=== PATIENT | female | born 1960 | race Caucasian/White ===

== ENCOUNTER 2017-04-24 12:40 | Emergency (ER) | payer BC ==
[~2017-04-24] VITALS: Ht 167.6 cm; Wt 63.3 kg
[2017-04-24 12:57] VITALS: Ht 167.6 cm; Wt 63.3 kg
[2017-04-24] MEDS ORDERED: IBUP-1459 PO (13:36)
--- NOTE | 2017-04-24 13:42 | EMERGENCY ROOM VISIT NOTE ---
History First contact with patient: 13:25 Chief Complaint: FALL Stated Complaint: LUE PAIN (RIBS), L HIP PAIN, HIT HEAD History of Present Illness The patient is a 56 year old female who presents to the Emergency Room via private vehicle accompanied by female with complaints of "left rib, left hip pain". The patient states that on Saturday, she was walking HER-2 dogs near the [facility], when the 2 dogs with the gerson after ortega rabbit causing her to fall down. She struck her head, there was no loss of consciousness. The rest of her body struck the grass. She notes pain in the left anterior ribs as well as left hip. She denies any midline C-spine tenderness, notes that it is her upper trapezius region that is tender. When she takes a deep breath there is pain in the left anterior rib cage. She denies abdominal pain. There is been no blood in the bowel or bladder function. She has been referred here today by [employer]. Review of Systems A complete 10-point Review of Systems was discussed with the patient, with pertinent positives and negatives listed in the History of Present Illness. All remaining Review of Systems questions can be considered negative unless otherwise specified. 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 Family History Heart disease, high blood pressure, kidney disease or stones. Social History Smoking Status: Former Smoker Patient lives with . She denies tobacco, admits to minimal alcohol use. Current/Historical Medications Scheduled PRN Ibuprofen (Motrin), 400 MG PO Q6H PRN for Pain Physical Exam Vital Signs Date Time Temp Pulse Resp B/P (MAP) Pulse Ox O2 Delivery O2 Flow Rate FiO2 04/24/17 15:59 36.3 60 18 128/66 98 04/24/17 15:57 60 18 128/66 98 Room Air 04/24/17 14:09 58 18 134/64 04/24/17 12:57 36.3 55 20 160/81 98 Room Air Physical Exam VITAL SIGNS - Vital signs and nursing notes were reviewed. Patient is afebrile , hypertensive at 160/81, bradycardic at 55 bpm, and is saturating well on room air at 98%. GENERAL -56-year-old female appearing her stated age. Communicates well with provider and answers questions appropriately. SKIN - Gross examination of the entire body surface demonstrates no lacerations to the body surface. HEAD - Normocephalic, Atraumatic. No Gilliland's Sign or Raccoon's Eyes. No depressed skull fractures palpable. EYES - PERRL with EOMI bilaterally. Without subconjunctival hemorrhage. Palpebral conjunctiva pink and moist with no injection. EARS - No deformities of external structures noted on gross examination bilaterally. No hemotympanum present. No tympanic perforation noted. Handle of malleus, umbo, cone of light, pars tensa/flaccid all easily visualized. NOSE - Midline and without cyanosis. No epistaxis or clear watery discharge noted. Septum midline without deviation. No septal hematoma noted. No overlying ecchymosis noted. MOUTH/OROPHARYNX - Without perioral cyanosis. Tongue midline with equal elevation of palate bilaterally. No blood noted in the oropharynx. No tonsillar hypertrophy, erythema, or exudates noted. No dental fractures noted. NECK - no tenderness to palpation over the cervical spinous processes. No cervical paraspinal muscle tenderness noted. There is 2. Trapezius muscle tenderness. LUNGS - Chest wall symmetric without accessory muscle use, intercostals retractions, or central cyanosis. No flail chest or depressed fractures noted. No paradoxical chest wall movements noted. There is slight tenderness to palpation across the anterior left chest cristobal. No tenderness with deep inspiration noted against the examiner's applied pressure to the lateral chest cristobal. Normal vesicular breath sounds CTA B/L. No wheezes, rales, or rhonchi appreciated. CARDIAC - RRR with S1/S2. No murmur, rubs, or gallops appreciated. ABDOMEN - Abdominal contour and without pulsations or visible masses. BS normoactive all four quadrants. No rebound tenderness or guarding noted. Negative Willard's or Bhakta Johnson's Signs. No tenderness, palpable masses, hepatosplenomegaly, or ascites noted. EXTREMITIES - No gross deformities noted of the extremities. There is tenderness to palpation overlying the left greater trochanter region, no other tenderness appreciated to palpation of the extremities. She is neurovascularly intact in her extremities. +5/5 strength noted in UE/LE bilaterally. NEUROLOGIC - Cranial nerves II through XII grossly intact. Sensory intact to light touch throughout. . PSYCH - A&Ox3 and cooperates fully with examiner. Pt is very pleasant and interacts well with examiner. Medical Decision & Procedures ER Provider Diagnostic Interpretation: LEFT RIBS UNILATERAL WITH PA CHEST CLINICAL HISTORY: Fall, left anterior rib pain trauma. Pain. COMPARISON STUDY: None FINDINGS: Nondisplaced cortical fracture anterior left eighth rib. All remaining ribs are unremarkable. Lungs are clear. No evidence pneumothorax. IMPRESSION: 1. Nondisplaced fracture left eighth rib. 2. Lungs are clear with no evidence pneumothorax. The above report was generated using voice recognition software. It may contain grammatical, syntax or spelling errors. Electronically signed by: Michael Riley M.D. 04/24/2017 3:00 PM Dictated Date/Time: 04/24/2017 2:58 PM LEFT PELVIS/UNILATERAL HIP 2-3VIEWS HISTORY: 56 years-old Female Fall, left hip pain COMPARISON: None available TECHNIQUE: AP view of the pelvis with 2 views of the left hip FINDINGS: Bony pelvis is intact without acute fracture or dislocation. Bone mineralization is within normal limits. Bilateral femoral acetabular joints are located. No left hip fracture or dislocation. There is only minimal bilateral femoral acetabular degenerative changes present. Negative for radiopaque foreign body. IMPRESSION: Mild femoral acetabular degenerative changes without acute fracture or dislocation. The above report was generated using voice recognition software. It may contain grammatical, syntax or spelling errors. Electronically signed by: Vipul Winn M.D. 04/24/2017 2:57 PM Dictated Date/Time: 04/24/2017 2:55 PM Medical Decision Patient was seen and evaluated as above. She presents to us today status post fall that occurred on Saturday. It has been 2 days since the event. She was seen at urgent care today and referred here over concern for potential internal bleeding. I discussed with her, that there is no abdominal pain on my examination, and believe that plain radiographs would be a good start. Results as above. There is a nondisplaced left anterior eighth rib fracture. Patient was offered CAT scan to evaluate for internal bleeding, and respectfully declined. I believe at this time it is reasonable to manage with just the radiographs. There is no evidence of internal bleeding. Urine dip reveals no blood. She denies any blood in the stool. Radiograph reveals no pneumothorax or elevated hemidiaphragm. There is no air bubble to indicate gas within the abdomen traumatically. At this time I believe she is stable from patient management. She declined pain medication. She was given an incentive spirometer to help with her breathing. She was educated upon worrisome symptoms which to return, had questions answered prior to discharge, and was discharged home in good condition. In evaluation showing this patient following differential diagnoses were entertained: Fracture, internal bleeding, contusion, among others. Impression Primary Impression: Fall Additional Impression: Left rib fracture Departure Information Dispostion Home / Self-Care Condition GOOD [facility] Instructions [facility] Additional Inst[facility] You have been treated in the Emergency Department for Rib pain. For pain control, you can use the following [id number] medicines (if >12 yo): - Regular strength (325mg/tab) Tylenol (acetaminophen) 2 tabs every 4-6 hours as needed. Do not exceed 12 tablets in a 24 hour period. Avoid taking more than 3 grams (3000 mg) of Tylenol per day. This includes any other sources of acetaminophen you may take on a regular basis. - Regular strength (200 mg/tab) Advil (ibuprofen) 1-2 tabs every 4-6 hours as needed. Do not exceed a dose of 3200 mg per day. If this is an acute injury, ice can be applied to the area of pain for the first 3 days to help decrease pain and inflammation. After the first 3 days, a heating pad can be used over the area for continued soothing relief. To minimize your discomfort, you can hug a pillow while coughing or sneezing. Additionally, you should continue to force yourself to take nice, deep breaths. Full expansion of the lungs is necessary to prevent the accumulation of fluid in the lung tissue and development of pneumonia. You should schedule a follow-up appointment in 2-3 days with your Primary Care Provider for further evaluation and treatment of your back pain. Please use the Incentive Spirometer several times per hour while awake to help prevent the development of pneumonia. Return to the Emergency Department if your current symptoms worsen despite treatment course outlined above, or if you develop any of the following symptoms : intractable pain despite aforementioned treatment course, development of a wet cough, bloody cough, fever, chills, or increased shortness of breath. Please return to the emergency department with any new/concerning symptoms. LEFT RIBS UNILATERAL WITH PA CHEST CLINICAL HISTORY: Fall, left anterior rib pain trauma. Pain. COMPARISON STUDY: None FINDINGS: Nondisplaced cortical fracture anterior left eighth rib. All remaining ribs are unremarkable. Lungs are clear. No evidence pneumothorax. IMPRESSION: 1. Nondisplaced fracture left eighth rib. 2. Lungs are clear with no evidence pneumothorax. LEFT PELVIS/UNILATERAL HIP 2-3VIEWS HISTORY: 56 years-old Female Fall, left hip pain COMPARISON: None available TECHNIQUE: AP view of the pelvis with 2 views of the left hip FINDINGS: Bony pelvis is intact without acute fracture or dislocation. Bone mineralization is within normal limits. Bilateral femoral acetabular joints are located. No left hip fracture or dislocation. There is only minimal bilateral femoral acetabular degenerative changes present. Negative for radiopaque foreign body. IMPRESSION: Mild femoral acetabular degenerative changes without acute fracture or dislocation. Problem Qualifiers
--- NOTE | 2017-04-24 14:58 | DIAGNOSTIC IMAGING REPORT ---
LEFT PELVIS/UNILATERAL HIP 2-3VIEWS HISTORY: 56 years-old Female Fall, left hip pain COMPARISON: None available TECHNIQUE: AP view of the pelvis with 2 views of the left hip FINDINGS: Bony pelvis is intact without acute fracture or dislocation. Bone mineralization is within normal limits. Bilateral femoral acetabular joints are located. No left hip fracture or dislocation. There is only minimal bilateral femoral acetabular degenerative changes present. Negative for radiopaque foreign body. IMPRESSION: Mild femoral acetabular degenerative changes without acute fracture or dislocation. The above report was generated using voice recognition software. It may contain grammatical, syntax or spelling errors. Electronically signed by: Vipul Winn M.D. 04/24/2017 2:57 PM Dictated Date/Time: 04/24/2017 2:55 PM
--- NOTE | 2017-04-24 15:01 | DIAGNOSTIC IMAGING REPORT ---
LEFT RIBS UNILATERAL WITH PA CHEST CLINICAL HISTORY: Fall, left anterior rib pain trauma. Pain. COMPARISON STUDY: None FINDINGS: Nondisplaced cortical fracture anterior left eighth rib. All remaining ribs are unremarkable. Lungs are clear. No evidence pneumothorax. IMPRESSION: 1. Nondisplaced fracture left eighth rib. 2. Lungs are clear with no evidence pneumothorax. The above report was generated using voice recognition software. It may contain grammatical, syntax or spelling errors. Electronically signed by: Michael Riley M.D. 04/24/2017 3:00 PM Dictated Date/Time: 04/24/2017 2:58 PM
[2017-04-24 15:59] VITALS: BP 128/66; PULSE 60; TEMP 36.3; O2SAT 98
== END 2017-04-24 16:00 | disposition home or self-care (01) ==
LOC: C.EDB 12:43
DX: S22.31XA Fracture of one rib, right side, initial encounter for closed fracture (principal); W19.XXXA Unspecified fall, initial encounter; M25.552 Pain in left hip; Z98.890 Other specified postprocedural states; Z87.891 Personal history of nicotine dependence